=== PATIENT | female | born 1990 | race Caucasian/White ===

== ENCOUNTER 2017-12-13 14:02 | Observation (INO) | payer OTHER, SELFPAY ==
[2017-12-13] VITALS (8 sets, daily range): BP systolic 106–138; BP diastolic 59–78; PULSE 64–118; RESP 16–22; TEMP 36.5–36.9; O2SAT 98–100
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
[2017-12-13] MEDS: KETOROLAC 60 MG/2 ML VIAL 15 MG IV (14:18)
[2017-12-13] MEDS: ONDANSETRON 4 MG/2 ML INJ IV (14:19)
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
[2017-12-13] MEDS: HYDROMORPHONE 0.5 MG INJ IV (16:00)
[2017-12-13 16:12] LABS: Bacteria Urine None Seen; RBC Urine None Seen (0-5/HPF); WBC Urine None Seen (0-5/HPF)
[2017-12-13 16:18] LABS: Add Manual Diff / Slide Review NO; Basophils Percent Auto 0.4 % (0-2); Eosinophils Percent Auto 4.8 % (2-4); Hematocrit 39.5 % (36-46); Hemoglobin 13.6 g/dL (12.0-16.0); Lymphocytes Percent Auto 21.9 % (25-40); Mean Corpuscular HGB Conc 34.4 % (30-36); Mean Corpuscular Hemoglobin 32.6 PG (26-34); Mean Corpuscular Volume 94.8 fL (80-100); Monocytes Percent Auto 7.4 % (3-14); Neutrophils Absolute Auto 3800 /uL (3000-5900); Neutrophils Percent Auto 65.5 % (50-75); Platelet Count 157 X10^3/uL (150-400); Red Blood Cell Count 4.17 X10^6/uL (4.0-5.2); Red Cell Distribution Width 12.6 % (11.6-14.8); White Blood Cell Count 5.8 X10^3/uL (4.5-11.0)
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
[2017-12-13 16:30] LABS: Appearance Urine UA CLEAR; Bilirubin Urine UA NEGATIVE (NEGATIVE); Color Urine UA YELLOW; Glucose Urine UA NEGATIVE (Normal); Ketones Urine UA NEGATIVE (NEGATIVE); Leukocyte Esterase Urine UA NEGATIVE (NEGATIVE); Nitrite Urine UA Negative (Negative); Occult Blood Urine UA NEGATIVE (Negative); Protein Urine UA NEGATIVE (Negative); Specific Gravity Urine UA <=1.005 (1.000-1.035); Urobilinogen Urine UA 0.2 E.U./dL (0.2)
[2017-12-13 16:34] LABS: Alanine Aminotransferase 31 IU/L (9-52); Albumin 4.1 g/dL (3.5-5.0); Albumin Globulin Ratio 1.6 (1.0-2.8); Alkaline Phosphatase 55 U/L (38-126); Amylase 84 U/L (30-110); Aspartate Aminotransferase 22 IU/L (14-36); Bilirubin Total 0.8 mg/dL (0.2-1.3); Blood Urea Nitrogen 11 mg/dL (7-17); Calcium 9.1 mg/dL (8.4-10.2); Carbon Dioxide 25 mmol/L (22-32); Chloride 106 mmol/L (98-107); Estimated Glomerular Filt Rate > 60.0 mL/min (>60); Globulin 2.5 g/dL (1.7-4.1); Glucose 76 mg/dL (70-100); HEMOLYSIS < 15 (0-50); Lipase 76 U/L (23-300); Potassium 3.8 mmol/L (3.4-5.1); Sodium 140 mmol/L (137-145); Total Protein 6.6 g/dL (6.3-8.2)
[2017-12-13 16:39] LABS: Culture Indicated Urine Cult Not Indicated; Urine Comments Microscopic Normal
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
[2017-12-13] MEDS: LACTATED RINGERS 1,000 ML 100 ML IV (18:56)
[2017-12-13] MEDS: KETOROLAC 15 MG/ML VIAL IV (18:57)
[2017-12-13] MEDS: ONDANSETRON 8 MG in SODIUM CHLORIDE 0.9% 50 ML 216 ML IV (18:57)
[2017-12-13 19:08] LABS: Alanine Aminotransferase 44 IU/L (9-52); Albumin 3.3 g/dL (3.5-5.0); Albumin Globulin Ratio 1.4 (1.0-2.8); Alkaline Phosphatase 48 U/L (38-126); Aspartate Aminotransferase 49 IU/L (14-36); Bilirubin Total 0.9 mg/dL (0.2-1.3); Blood Urea Nitrogen 10 mg/dL (7-17); Calcium 8.5 mg/dL (8.4-10.2); Carbon Dioxide 24 mmol/L (22-32); Chloride 107 mmol/L (98-107); Estimated Glomerular Filt Rate > 60.0 mL/min (>60); Globulin 2.3 g/dL (1.7-4.1); Glucose 70 mg/dL (70-100); HEMOLYSIS < 15 (0-50); Potassium 3.7 mmol/L (3.4-5.1); Sodium 138 mmol/L (137-145); Total Protein 5.6 g/dL (6.3-8.2)
[2017-12-13] MEDS: diazePAM 10 MG/2 ML SYRINGE 2 MG IV (21:15)
--- NOTE | 2017-12-13 22:39 | PC.NURSE ---
Evening Shift Note Pt A&O, VSS, 100% RA. complaint of 6/10 sharp, spasm pain near g tube radiating to back, also complaint of nausea. PRN toradol and Zofran given. Pain reassessed and pt expressed minimal relief, pt appears very uncomfortable. paged as to no other PRNs available, new orders received for Valium IV x1 and PO Valium. PRNs given and pain reassessed, pt expressed feeling sleeping and no relief from Valium. paged, new orders received for follow-up imaging, pt to imaging via wheelchair. Currently resting in bed and able to nod off at times. LR @ 100ml/hr, via L UA PICC. Up independently in room. Area of skin surrounding g-tube C/D/I, abdomen tender. awaiting results.
[2017-12-14] MEDS: KETOROLAC 15 MG/ML VIAL IV ×2 (01:17→08:08)
[2017-12-14] MEDS: ONDANSETRON 8 MG in SODIUM CHLORIDE 0.9% 50 ML 216 ML IV ×2 (01:19→08:26)
[2017-12-14 06:16] VITALS: BP 118/53; PULSE 67; RESP 16; TEMP 36.9; O2SAT 100
[2017-12-14 06:16] LABS: Add Manual Diff / Slide Review NO; Basophils Percent Auto 0.7 % (0-2); Hematocrit 32.9 % (36-46); Hemoglobin 11.5 g/dL (12.0-16.0); Mean Corpuscular HGB Conc 34.9 % (30-36); Mean Corpuscular Hemoglobin 33.2 PG (26-34); Mean Corpuscular Volume 95.1 fL (80-100); Monocytes Percent Auto 8.2 % (3-14); Neutrophils Absolute Auto 1500 /uL (3000-5900); Neutrophils Percent Auto 51.1 % (50-75); Platelet Count 122 X10^3/uL (150-400); Red Blood Cell Count 3.45 X10^6/uL (4.0-5.2); Red Cell Distribution Width 12.4 % (11.6-14.8)
[2017-12-14 06:24] LABS: Alanine Aminotransferase 41 IU/L (9-52); Albumin 2.9 g/dL (3.5-5.0); Albumin Globulin Ratio 1.3 (1.0-2.8); Alkaline Phosphatase 42 U/L (38-126); Aspartate Aminotransferase 29 IU/L (14-36); Bilirubin Total 0.6 mg/dL (0.2-1.3); Bilirubin Unconjugated 0.6 mg/dL (0.0-1.1); Blood Urea Nitrogen 7 mg/dL (7-17); Calcium 8.3 mg/dL (8.4-10.2); Carbon Dioxide 27 mmol/L (22-32); Chloride 107 mmol/L (98-107); Estimated Glomerular Filt Rate > 60.0 mL/min (>60); Globulin 2.2 g/dL (1.7-4.1); Glucose 69 mg/dL (70-100); HEMOLYSIS < 15 (0-50); Potassium 3.6 mmol/L (3.4-5.1); Sodium 138 mmol/L (137-145); Total Protein 5.1 g/dL (6.3-8.2)
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
[2017-12-14 08:01] VITALS: BP 92/54; PULSE 76; RESP 16; TEMP 36.7; O2SAT 99
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
== END 2017-12-14 11:45 | disposition home or self-care (01) ==
LOC: ED 15:06 → AC 18:08
PROVIDERS: Admitting Provider Surgery; Emergency Provider Emergency Medicine; Visit Provider Surgery
DX: R10.13 Epigastric pain (principal); V49.40XA Driver injured in collision with unspecified motor vehicles in traffic accident, initial encounter; K31.84 Gastroparesis; K22.4 Dyskinesia of esophagus; Z95.828 Presence of other vascular implants and grafts; Z93.1 Gastrostomy status
CPT/HCPCS: 36415; 36592; 71046; 74022; 74176; 80053; 80076; 81001; 82150; 83690; 85025; 96374; 96375; 99217; 99219; 99283; 99285; G0378; J1170; J1885; J2405; J3360